=== PATIENT | female | born 1980 | race Caucasian/White ===

== ENCOUNTER 2018-05-16 16:11 | Inpatient (IN) | payer BC ==
[2018-05-16] MEDS ORDERED: OXYTOCIN/RINGERS LACTATE 1,000 ML IV PRN (17:49)
[2018-05-16] MEDS ORDERED: EPSOM SALT 454 GM TP PRN (17:49)
[2018-05-16] MEDS ORDERED: OLIVE OIL 118 ML BTL MISC PRN (17:49)
[2018-05-16] MEDS ORDERED: LR 1,000 ML IV PRN (17:49)
[2018-05-16] MEDS ORDERED: LIDOCAINE 1% 300 MG/30 ML SDV SC PRN (17:49)
[2018-05-16] MEDS ORDERED: MISOPROSTOL 200 MCG TAB PR PRN (17:49)
[2018-05-16] MEDS ORDERED: IBUPROFEN 600 MG TAB PO PRN (17:49)
[2018-05-16] MEDS ORDERED: LIDOCAINE 1% 300 MG/30 ML SDV ONE (18:25)
[2018-05-16] MEDS ORDERED: OLIVE OIL 118 ML BTL MISC ONE (18:26)
[2018-05-16] MEDS ORDERED: MISOPROSTOL 200 MCG TAB ONE (18:26)
[2018-05-16] MEDS ORDERED: AMMONIA AROMATIC 1 EACH AMP IH ONE (18:26)
[2018-05-16] MEDS ORDERED: OXYTOCIN 10 UNIT/ML VIAL ONE (18:26)
[2018-05-16 18:27] LABS: PLATELET COUNT 226 10^3/uL (150-400)
--- NOTE | 2018-05-16 18:55 | GHP ---
[f rep st] PREOP HISTORY AND PHYSICAL DATE OF ADMISSION: 05/16/2018 ADMISSION DIAGNOSES: 1. Intrauterine at 39+ weeks gestation. 2. Spontaneous rupture of membranes and early labor. The patient is a 37-year-old 2, para 1-0-0-1. She began leaking clear fluid this morning at 3:30 a.m. She has had continuous leaking of fluid since then and she has gradually had contractions i ncreasing in frequency and intensity over the last hour or so. status remains reassuring. Colette krause is hoping to avoid interventions, and so she is declining augmentation at this time. stat us remains reassuring. MEDICAL HISTORY: Unremarkable. However, she and her family do not support vaccinations. MEDICATIONS: vitamins. SURGICAL HISTORY: Double hernia repair as a child. FAMILY MEDICAL HISTORY: Noncontributory. ALLERGIES: No known drug allergies. SOCIAL HISTORY: Patient is . 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 She denies tobacco, alcohol, or drug use . 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 She is a 2, para 1-0-0-1 in 07/2016. She had a spontaneous vaginal delivery of a 6 pound 10 ounce female infant at 39 and 2 7 weeks gestation. and delivery were uncomplicated. Current has been unc omplicated. Patient does have a remote history of abnormal Pap smears. No colposcopies or procedure s were done. Everything has been normal since then. She denies any history of any sexually transmit kristen diseases. REVIEW OF SYSTEMS: A 10-point review of systems is negative with the exception of the above-mentione d pertinent positives. She denies any headache, changes in vision, nausea, vomiting, fevers, chills. She has positive leaking of fluid. She denies any vaginal bleeding. PHYSICAL EXAMINATION: VITAL SIGNS: The patient's vital signs are stable her general appearance is a lert and oriented x3. MUSCULOSKELETAL: Grossly intact. NEURO: Grossly intact. PSYCH: Appropriat e affect. HEART: Regular. LUNGS: Clear to auscultation bilaterally. ABDOMEN: Gravid, nondistend ed, nontender. EXTREMITIES: No calf tenderness or edema. Patient is having occasional contractions, heart tracing is category I, in vertex presen tation. Her exam last week was 3 cm dilated, 80% effaced and -2 station. LABS: Blood type A positive. Antibody screen negative. Rubella immune. GBS negative. HB sAg negative. Her 50 g glucose was 89. . ASSESSMENT AND PLAN: A 37-year-old 2, para 1-0-0-1 who is 39+ weeks gestation with spontaneo us rupture of membranes in early labor. She will be managed expectantly and augmented later on as wilbur jeong. /[id number]/MODL
--- NOTE | 2018-05-16 20:26 | OBPROG ---
Labor Progress Note Assessment/Plan: Assessment: Plan: Subjective/Intrapartum Course: 05/16/18 20:26 patient having contractions q 15 minutes. are feeling more intense. denies augmentation. status reassuring. Objective: 05/16/18 18:20 Patient ABO/Rh A POSITIVE 05/16/18 18:20 - Contraction Pattern Assessment Current Contraction Pattern: Irregular - AP Antepartum Course: 05/16/18 20:26 declined tdap. uncomplicated Oxytocin Orders Assessment - Pre-Induction/Augmentation Assessment Gestational Age: 39 week(s) and 2 day(s) ICD10 Worksheet Patient Problems: Problems Problem Status Onset Labor established Acute
--- NOTE | 2018-05-16 21:17 | OBPROG ---
Labor Progress Note Assessment/Plan: Assessment: Plan: Subjective/Intrapartum Course: 05/16/18 20:26 patient having contractions q 15 minutes. are feeling more intense. denies augmentation. status reassuring. 05/16/18 21:12 contractions more intense and longer but still spaced out. discussed expectant management, nipple stimulation and pitocin. status reassuring. declines augmentation at this time but will start nipple stimulation. reviewed that she will need to be monitored continuously. Objective: 05/16/18 18:20 Patient ABO/Rh A POSITIVE 05/16/18 18:20 - Contraction Pattern Assessment Current Contraction Pattern: Irregular - FHR Assessment Kyle FHR Pattern Variability: Moderate FHR Category: 1 - AP Antepartum Course: 05/16/18 20:26 declined tdap. uncomplicated Oxytocin Orders Assessment - Pre-Induction/Augmentation Assessment Gestational Age: 39 week(s) and 2 day(s) ICD10 Worksheet Patient Problems: Problems Problem Status Onset Premature rupture of membranes Acute Labor established Acute
[2018-05-16] MEDS ORDERED: LR 500 ML IV PRN (21:40)
[2018-05-16] MEDS ORDERED: OXYTOCIN/RINGERS LACTATE 500 ML IV SCH (22:00)
--- NOTE | 2018-05-16 23:56 | OBPROG ---
Labor Progress Note Assessment/Plan: Assessment: Plan: Subjective/Intrapartum Course: 05/16/18 20:26 patient having contractions q 15 minutes. are feeling more intense. denies augmentation. status reassuring. 05/16/18 21:12 contractions more intense and longer but still spaced out. discussed expectant management, nipple stimulation and pitocin. status reassuring. declines augmentation at this time but will start nipple stimulation. reviewed that she will need to be monitored continuously. 05/16/18 23:54 patient much more uncomfortable and breathing through contractions. patient getting into the tub for pain relief. sve by rn /-2. status reassuring. Objective: 05/16/18 18:20 Patient ABO/Rh A POSITIVE 05/16/18 18:20 - SVE Dilation (cm): 4 Effacement (%): 90 Station: -2 Membranes: SROM Amniotic Fluid Color: Clear - Contraction Pattern Assessment Current Contraction Pattern: Irregular - FHR Assessment Kyle FHR Pattern Variability: Moderate FHR Category: 1 - AP Antepartum Course: 05/16/18 20:26 declined tdap. uncomplicated Oxytocin Orders Assessment - Pre-Induction/Augmentation Assessment Gestational Age: 39 week(s) and 2 day(s) ICD10 Worksheet Patient Problems: Problems Problem Status Onset Premature rupture of membranes Acute Labor established Acute
--- NOTE | 2018-05-17 00:54 | OBPROG ---
Labor Progress Note Assessment/Plan: Assessment: Plan: Subjective/Intrapartum Course: 05/16/18 20:26 patient having contractions q 15 minutes. are feeling more intense. denies augmentation. status reassuring. 05/16/18 21:12 contractions more intense and longer but still spaced out. discussed expectant management, nipple stimulation and pitocin. status reassuring. declines augmentation at this time but will start nipple stimulation. reviewed that she will need to be monitored continuously. 05/16/18 23:54 patient much more uncomfortable and breathing through contractions. patient getting into the tub for pain relief. sve by rn /-2. status reassuring. 05/17/18 00:52 patient rapidly progressed to complete. requested nitrousoxide. issues with machine but was able to have for the last few pushes. pushed well. Objective: 05/16/18 18:20 Patient ABO/Rh A POSITIVE 05/16/18 18:20 - SVE Membranes: SROM Amniotic Fluid Color: Clear Dilation Complete Date: 05/17/18 - Contraction Pattern Assessment Current Contraction Pattern: Irregular - AP Antepartum Course: 05/16/18 20:26 declined tdap. uncomplicated Oxytocin Orders Assessment - Pre-Induction/Augmentation Assessment Gestational Age: 39 week(s) and 2 day(s) ICD10 Worksheet Patient Problems: Problems Problem Status Onset Premature rupture of membranes Acute Labor established Acute
--- NOTE | 2018-05-17 00:58 | OBGCSDC ---
General Delivery Information - General Info : 2 Para: 1 Abortions: 0 Type: Vaginal L&D Analgesia/Anesthesia Type: Nitrous Admission Date: 05/16/18 Labs: Patient ABO/Rh A POSITIVE 05/16/18 18:20 Hct 35.4 % (38.0-47.0) L 05/16/18 18:20 - Hospital Course Antepartum: 05/16/18 20:26 AMA. negative innatal and level 2 ultrasound. declined tdap. uncomplicated . SROM at 0330. progressed into active labor spontaneously around 930 pm. 05/17/18 00:56 Intrapartum: 05/16/18 20:26 patient having contractions q 15 minutes. are feeling more intense. denies augmentation. status reassuring. 05/16/18 21:12 contractions more intense and longer but still spaced out. discussed expectant management, nipple stimulation and pitocin. status reassuring. declines augmentation at this time but will start nipple stimulation. reviewed that she will need to be monitored continuously. 05/16/18 23:54 patient much more uncomfortable and breathing through contractions. patient getting into the tub for pain relief. sve by rn /-2. status reassuring. 05/17/18 00:52 patient rapidly progressed to complete. requested nitrousoxide. issues with machine but was able to have for the last few pushes. pushed well. Vaginal - Diagnosis Labor: Spontaneous Amniotic Fluid Color: Clear [place] Data VINITA: 05/21/18 Gestational Age: 39 week(s) and 3 day(s)
--- NOTE | 2018-05-17 01:04 | OBDEL ---
Info Type: Vaginal Presentation at Delivery: Vertex L&D Analgesia/Anesthesia Type: Nitrous (for the last few pushes) GBS+: No Intrapartum Medications: Generic Name Dose Route Start Last Admin Trade Name Ben PRN Reason Stop Dose Admin [place] [employer] 118 ml 05/16/18 17:49 05/17/18 00:27 [place] [employer] MISC 11/12/18 17:48 1 btl ONCE PRN Administration perineal massage - Hospital Course Intrapartum: 05/16/18 20:26 patient having contractions q 15 minutes. are feeling more intense. denies augmentation. status reassuring. 05/16/18 21:12 contractions more intense and longer but still spaced out. discussed expectant management, nipple stimulation and pitocin. status reassuring. declines augmentation at this time but will start nipple stimulation. reviewed that she will need to be monitored continuously. 05/16/18 23:54 patient much more uncomfortable and breathing through contractions. patient getting into the tub for pain relief. sve by rn 4/90/-2. status reassuring. 05/17/18 00:52 patient rapidly progressed to complete. lots of back labor requested nitrous oxide. issues with machine but was able to have for the last few pushes. pushed well. 05/17/18 01:01 Indications for Delivery: Spontaneous Labor, SROM Vaginal Delivery - Delivery Provider Delivery Physician/CNM: Alexa Reza - Labor and Delivery Onset of Contractions Date: 05/16/18 Onset of Contractions Time: 15:00 Onset of Contractions Type: Spontaneous Rupture of Membranes Date: 05/16/18 Rupture of Membranes Time: 03:00 Rupture of Membranes Type: Spontaneous Amniotic Fluid Color: Clear Dilation Complete Date: 05/17/18 Dilation Complete Time: 00:28 Placenta Delivery Date: 05/17/18 Placenta Delivery Time: 00:45 Total Hours of Labor: 9 Laceration: Other (Specify) (right periurethral) Vaginal Sponge Count Correct: Yes Vaginal Needle Count Correct: Yes Vaginal Sweep Performed: Yes EBL: [address] [place] Data VINITA: 05/21/18 Gestational Age: 39 week(s) and 3 day(s) Kyle Delivery Date: 05/17/18 Delivery Time: 00:37 Sex of Infant: Female Score (1 Min): 9 Score (5 Min): 9 ICD10 Worksheet Patient Problems: Problems Problem Status Onset Premature rupture of membranes Acute Labor established Acute
[2018-05-17] MEDS ORDERED: HYDROCORTISONE 0.5% CREAM TP PRN (01:17)
[2018-05-17] MEDS ORDERED: SIMETHICONE 80 MG TAB CHEW PO PRN (01:17)
[2018-05-17] MEDS ORDERED: oxyCODONE IR 5 MG TAB PO PRN (01:17)
[2018-05-17] MEDS ORDERED: DOCUSATE SODIUM 100 MG CAP PO PRN (01:17)
[2018-05-17] MEDS: ACETAMINOPHEN 325 MG TAB PO PRN ×4 (01:54→19:46)
[2018-05-17] MEDS: IBUPROFEN 600 MG TAB PO PRN ×3 (07:59→19:46)
[2018-05-17 19:53] VITALS: BP 130/83
[2018-05-18] MEDS: IBUPROFEN 600 MG TAB PO PRN (01:46)
[2018-05-18] MEDS: ACETAMINOPHEN 325 MG TAB PO PRN (01:46)
--- NOTE | 2018-05-18 11:29 | OBPP ---
Progress Note Assessment/Plan: Assessment: ppd# 1 s/p rh+/RI/breast feeding routine discharge instructions and follow up Plan: 05/18/18 11:27 Subjective/ Course: 05/18/18 11:28 patient is doing well. pain is well controlled. normal lochia. denies headache and changes in vision. ready to go home. feels great. got rest last night. breast feeding is going well Objective: 05/16/18 18:20 Patient ABO/Rh A POSITIVE 05/16/18 18:20 Temp Pulse Resp BP Pulse Ox 36.3 C 89 18 130/83 H 95 05/17/18 19:30 05/17/18 19:30 05/17/18 19:30 05/17/18 19:30 05/17/18 03:10 Physical Exam - Physical Exam Neck: non-tender, full range of motion Respiratory: chest non-tender, lungs clear, normal breath sounds Cardiac/Chest: normal peripheral pulses, regular rate, rhythm Abdomen: normal bowel sounds, non-tender, other (fundus firm and non tender) Extremities: normal range of motion, non-tender, normal inspection, normal capillary refill Skin: normal color, warm/dry Neuro/Psych: no motor/sensory deficits, alert, normal mood/affect, oriented x 3
--- NOTE | 2018-05-18 11:29 | OBGCSDC ---
General Delivery Information - General Info : 2 Para: 2 Abortions: 0 Type: Vaginal L&D Analgesia/Anesthesia Type: Nitrous Admission Date: 05/16/18 Labs: Patient ABO/Rh A POSITIVE 05/16/18 18:20 Hct 35.4 % (38.0-47.0) L 05/16/18 18:20 - Hospital Course Antepartum: 05/16/18 20:26 AMA. negative innatal and level 2 ultrasound. declined tdap. uncomplicated . SROM at 0330. progressed into active labor spontaneously around 930 pm. 05/17/18 00:56 Intrapartum: 05/16/18 20:26 patient having contractions q 15 minutes. are feeling more intense. denies augmentation. status reassuring. 05/16/18 21:12 contractions more intense and longer but still spaced out. discussed expectant management, nipple stimulation and pitocin. status reassuring. declines augmentation at this time but will start nipple stimulation. reviewed that she will need to be monitored continuously. 05/16/18 23:54 patient much more uncomfortable and breathing through contractions. patient getting into the tub for pain relief. sve by rn /-2. status reassuring. 05/17/18 00:52 patient rapidly progressed to complete. lots of back labor requested nitrous oxide. issues with machine but was able to have for the last few pushes. pushed well. 05/17/18 01:01 : 05/18/18 11:28 patient is doing well. pain is well controlled. normal lochia. denies headache and changes in vision. ready to go home. feels great. got rest last night. breast feeding is going well Vaginal - Delivery Provider Delivery Physician/CNM: Alexa Reza - Diagnosis Labor: Spontaneous Rupture of Membranes Type: Spontaneous Amniotic Fluid Color: Clear Laceration: Other (Specify) (right periurethral) Delivery Events: None - Delivery EBL: [address] [place] Data VINITA: 05/21/18 Gestational Age: 39 week(s) and 4 day(s) Kyle Delivery Date: 05/17/18 Delivery Time: 00:37 Sex of : Female [place] Weight (gm): 3650 g Score (1 Min): 9 Score (5 Min): 9 Discharge Information - Discharge Information Condition: Good Instruction/Follow Up: Four Weeks (post mood check ), Six Weeks (post visit)
== END 2018-05-18 11:30 | disposition home or self-care (01) | DRG 807 ==
LOC: FLD 16:11 → FOB 05-17 02:15
PROVIDERS: ADMIT Obstetrics & Gynecology; ATTEND Obstetrics & Gynecology
PROC: 10E0XZZ Delivery of Products of Conception, External Approach (ICD-10-PCS; principal; 2018-05-16)
DX: O71.82 Other specified trauma to perineum and vulva (principal); Z3A.39 39 weeks gestation of pregnancy; Z37.0 Single live birth
CPT/HCPCS: J2590